=== PATIENT | male | born 1945 | race Caucasian/White ===

== ENCOUNTER 2021-06-18 10:02 | Day surgery (SDC) | payer MEDICARE, SELFPAY ==
--- NOTE | 2021-06-17 11:01 | HO.ANESPROP2 ---
Documented by User: Melissa Archibald NP 06/17/21 11:06 HPI - Anesthesia Eval Consult details Narrative: 76yo M for Upper Endoscopy and Colonoscopy 06/10/21 evaluation by vascular for increasing AAA. Cleared to undergo colonoscopy without concern for rupture O2 dependant for COPD (prn); ? prednisone daily 03/2021 Routine cardiology - stable for 6 mo f/u [facility] Past Medical History Medical History AAA (abdominal aortic aneurysm) BPH (benign prostatic hyperplasia) CAD (coronary artery disease) COPD (chronic obstructive pulmonary disease) GERD (gastroesophageal reflux disease) History of skin cancer HTN (hypertension) Myocardial infarction Surgical History Surgical History H/O colonoscopy History of esophagogastroduodenoscopy (EGD) Hx of angioplasty Hx of cholecystectomy Hx of heart artery stent Social History Social History Patient Tobacco Use Status: Former Tobacco user Quit Date: 2005 Tobacco use type: Cigarette Use of substances other than those prescribed or required for medical reasons: No Advance Directives: No Advance Directives Information Provided: Yes Recently lost weight without trying: No Nutrition Risks: No Nutritional Risk Meds Allergies Allergy/AdvReac Type Severity Reaction Status Date / Time adhesive tape Allergy Intermediate Rash Verified 06/04/21 15:41 [id number] Reductase Allergy Intermediate jittery Verified 06/04/21 15:41 Inhibitor tree nut Allergy Intermediate Itching Verified 06/04/21 15:41 Home Medications Medication Instructions Recorded Confirmed Last Taken Type albuterol sulfate 90 mcg/actuation 2 puff PO QID PRN 06/04/21 06/04/21 Unknown History aerosol inhaler amlodipine 2.5 mg tablet 1 tab PO DAILY 06/04/21 06/04/21 Unknown History finasteride 5 mg tablet 1 tab PO DAILY 06/04/21 06/04/21 Unknown History fluticasone 250 mcg-salmeterol 50 1 inh INHALATION BID 06/04/21 06/04/21 Unknown History mcg/dose blistr powdr for inhalation (Advair Diskus) furosemide 40 mg tablet 1 tab PO DAILY 06/04/21 06/04/21 Unknown History pantoprazole 40 mg tablet,delayed 1 tab PO DAILY 06/04/21 06/04/21 Unknown History release prednisone 10 mg tablet 1 tab PO DAILY 06/04/21 06/04/21 Unknown History tamsulosin 0.4 mg capsule (Flomax) 0.4 mg PO BEDTIME 06/04/21 06/04/21 Unknown History tiotropium bromide 18 mcg capsule 1 cap INHALATION DAILY 06/04/21 06/04/21 Unknown History with inhalation device (Spiriva with HandiHaler) Exam Exam Date and Time: June 17, 2021 1101 Narrative Narrative: EKG 03/2021 NSR ?LAE 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 Nml LV size and function with EF 60-65% Moderate MAC Mild mitral stenosis d/t MAC Nml RV size and function No significant change from 10/2018 Assessment and Plan Assessment Anesthesia Assessment: Chart Reviewed Documented by User: Dione Bocanegra MD 06/18/21 11:47 PMF Active Problems Active Problems: COPD - On home O2 @ 2L/min, increased as needed with exertion Carotid atherosclerosis. Patient not aware if stenosis, never mentioned Tremors felt while examining patient. ?Intention tremors. Patient admits to onset within the last 2-3months. Patient states was told 'not Parkinson's' AAA- increase in size from 2.9 to 4.4cm (fusiform AAA) over last 4-5 years. Repeat USS recommended in 6 months CHF. Occ SOB especially with exertion. On lasix ? 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 Just PVCs. Does not remember ever being on anticoagulants CAD with h/o AR. Denies recent chest pain Past Medical History Medical History AAA (abdominal aortic aneurysm) BPH (benign prostatic hyperplasia) CAD (coronary artery disease) COPD (chronic obstructive pulmonary disease) GERD (gastroesophageal reflux disease) History of skin cancer HTN (hypertension) Myocardial infarction Family History Family history of problems with anesthesia: No Surgical History Surgical History H/O colonoscopy History of esophagogastroduodenoscopy (EGD) Hx of angioplasty Hx of cholecystectomy Hx of heart artery stent History of Problems with Anesthesia: No Social History Social History Patient Tobacco Use Status: Former Tobacco user Quit Date: 2005 Tobacco use type: Cigarette Use of substances other than those prescribed or required for medical reasons: No Advance Directives: No Advance Directives Information Provided: Yes Recently lost weight without trying: No Nutrition Risks: No Nutritional Risk Meds Allergies Allergy/AdvReac Type Severity Reaction Status Date / Time adhesive tape Allergy Intermediate Rash Verified 06/04/21 15:41 [id number] Reductase Allergy Intermediate jittery Verified 06/04/21 15:41 Inhibitor tree nut Allergy Intermediate Itching Verified 06/04/21 15:41 Home Medications Medication Instructions Recorded Confirmed Last Taken Type albuterol sulfate 90 mcg/actuation 2 puff PO QID PRN 06/04/21 06/04/21 Unknown History aerosol inhaler amlodipine 2.5 mg tablet 1 tab PO DAILY 06/04/21 06/04/21 Unknown History finasteride 5 mg tablet 1 tab PO DAILY 06/04/21 06/04/21 Unknown History fluticasone 250 mcg-salmeterol 50 1 inh INHALATION BID 06/04/21 06/04/21 Unknown History mcg/dose blistr powdr for inhalation (Advair Diskus) furosemide 40 mg tablet 1 tab PO DAILY 06/04/21 06/04/21 Unknown History pantoprazole 40 mg tablet,delayed 1 tab PO DAILY 06/04/21 06/04/21 Unknown History release prednisone 10 mg tablet 1 tab PO DAILY 06/04/21 06/04/21 Unknown History tamsulosin 0.4 mg capsule (Flomax) 0.4 mg PO BEDTIME 06/04/21 06/04/21 Unknown History tiotropium bromide 18 mcg capsule 1 cap INHALATION DAILY 06/04/21 06/04/21 Unknown History with inhalation device (Spiriva with HandiHaler) Exam Height,Weight and Vital Signs: Height 5 ft 10 in Weight 92.986 kg Vital Signs Temp Pulse Resp BP Pulse Ox 06/18/21 11:20 98.1 F 85 17 151/81 H 95 Narrative Narrative: EKG 03/2021 NSR ?LAE 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 Nml LV size and function with EF 60-65% Moderate MAC Mild mitral stenosis d/t MAC Nml RV size and function No significant change from 10/2018 Echo 10/2018: EF 60%. Moderate pulmonary hypertension. Unable to obtain pulmonary artery pressures at recent echo. Airway Mallampati Class: III TM Dist: >3cm Neck ROM: Full Loose/Missing/Broken Teeth: No Heart: RRR Lungs: CTAB Assessment and Plan Assessment Anesthesia Assessment: Anesthesia Plan Discussed Final Anesthetic Review Family History of Problems with Anesthesia: No History of Problems with Anesthesia: No NPO: Yes ASA Class: III Final Preanesthetic Review: No Changes in Pt Med Stat, Meds/Allgs Chart Reviewed, Consent Obtained/Reviewed and Anes Risks/Benef Reviewed Patient Risk: Intermediate Procedure Risk: Low Assessment/Block/Sedation in SS: Assess/Block/Sedation-SS Anesthetic Plan Anesthetic Plan: MAC: Disposition: Standard PACU
[2021-06-18 11:09] VITALS: BMI 29.4
[2021-06-18 11:20] VITALS: BP 151/81; PULSE 85; RESP 17; TEMP 36.7; O2SAT 95; BMI 29.4
--- NOTE | 2021-06-18 11:36 | MHC.SHP ---
Pre-Procedural Eval Section A Date of Service: 06/18/21 Section B Chief Complaint: screening,barretts Details of Present Illness: see h and p no changes Relevant Family History (Specify if Yes): No Relevant Social History: None Present Medications: None Medical History: Significant History (see h and p) Allergies: Allergies Allergy/AdvReac Type Severity Reaction Status Date / Time adhesive tape Allergy Intermediate Rash Verified 06/04/21 15:41 Tpcwgih-[id number]-LaD Reductase Allergy Intermediate jittery Verified 06/04/21 15:41 Inhibitor tree nut Allergy Intermediate Itching Verified 06/04/21 15:41 Review of Systems Sugical H&P ROS: Negative: Constitution, Cardiovascular, Respiratory, Neurological, Psychiatric, Hem-Onc, Allergic/Immunologic, Gastrointestinal, Genitourinary, Musculoskeletal, Integumentary, Endocrine and Eyes/Ears/Nose/Throat Exam Surgical H&P Exam: Normal: HEENT, Normal: Heart, Normal: Lungs, Normal: Extremities, Normal: Abdomen, Normal: Skin and Normal: Neurological Plan Diagnosis/Plan: Unchanged I have reviewed the history and physical and performed a pertinent physical examination on my patient. No changes have occurred unless specified.
[2021-06-18] MEDS: Lactated Ringers 1,000 ML 50 ML IVCONT (11:39)
--- NOTE | 2021-06-18 12:21 | PM.OP ---
Brief Operative Note Date of Service: 06/18/21 Pre-op diagnosis: barretts, screening Post-op diagnosis: same Surgeon: Augusto Hwang Anesthesia: MAC Was an Stores Despatch Hand used for this Procedure?: No Estimated blood loss (mL): 5 Pathology: other (bxs esophagus, colon polyp) Condition: stable Disposition: PACU
[2021-06-18 12:24] VITALS: BP 100/65; PULSE 82; RESP 18; TEMP 36.6; O2SAT 98
[2021-06-18 12:40] VITALS: BP 111/72; PULSE 80; RESP 16; TEMP 36.6; O2SAT 96
--- NOTE | 2021-06-18 18:09 | OP_ITS ---
SURGEON: Augusto Hwang MD INDICATIONS: 1. Bolanos's esophagus. 2. Colon cancer screening. PREOPERATIVE DIAGNOSIS: POSTOPERATIVE DIAGNOSIS: PROCEDURE PERFORMED: ESTIMATED BLOOD LOSS: COMPLICATIONS: ANESTHESIA: ASSISTANTS: SPECIMENS: PROCEDURES PERFORMED: 1. Upper endoscopy with biopsy. 2. Colonoscopy to the cecum with biopsy. MEDICATIONS: Monitored anesthesia care. DESCRIPTION OF PROCEDURE: History and physical performed. The risks and benefits of the procedure were explained to the patient. Informed consent was obtained. The patient was placed in left lateral decubitus position. A digital rectal exam was performed and was found to be normal. The Olympus pediatric video colonoscope was introduced into the rectum and advanced to the cecum without difficulty. The cecum was identified by transillumination, palpation, and identification of ileocecal valve. Examination was performed and the scope was removed. He tolerated the procedure well and was taken to recovery area in stable condition. FINDINGS: UPPER ENDOSCOPY: Esophagus: The esophagus showed an approximately 2 cm patchy area of Bolanos's esophagus involving distal esophagus without any raised areas or ulceration. There was no esophagitis. Biopsies were obtained at the EG junction, 40 cm and 38 cm. Stomach: The stomach showed no evidence of masses, ulcers, or polyps. Duodenum: The bulb and second portion were normal. COLONOSCOPY: The terminal ileum was not examined. The visualized colonic mucosa was normal. There was some liquid stool coating the mucosa, limiting the sensitivity examination for detection of small polyps. This was washed and suctioned as best possible. In the cecum, was a less than 5 mm sessile polyp, which was removed with biopsy forceps. Retroflexed examination showed moderate-sized internal hemorrhoids. There was moderate sigmoid diverticulosis. No other polyps were identified. IMPRESSION: 1. Bolanos's esophagus. 2. Colon polyp. RECOMMENDATION: Follow up the biopsy results. MD DESTINEE Ann/CHRISTIANO / [id number] HA
== END 2021-06-18 12:05 | disposition home or self-care (01) ==
PROVIDERS: Visit Provider Internal Medicine Gastroenterology
PROC: (CPT 45380; principal; 2021-06-18 11:30)
DX: Z12.11 Encounter for screening for malignant neoplasm of colon (principal); D12.0 Benign neoplasm of cecum; K57.30 Diverticulosis of large intestine without perforation or abscess without bleeding; K64.8 Other hemorrhoids; K22.70 Barrett's esophagus without dysplasia; K21.9 Gastro-esophageal reflux disease without esophagitis; J44.9 Chronic obstructive pulmonary disease, unspecified; I11.0 Hypertensive heart disease with heart failure; I50.9 Heart failure, unspecified; I27.20 Pulmonary hypertension, unspecified; I25.10 Atherosclerotic heart disease of native coronary artery without angina pectoris; Z98.61 Coronary angioplasty status; Z85.828 Personal history of other malignant neoplasm of skin; Z99.81 Dependence on supplemental oxygen; Z79.51 Long term (current) use of inhaled steroids; Z79.899 Other long term (current) drug therapy; Z90.49 Acquired absence of other specified parts of digestive tract; Z88.1 Allergy status to other antibiotic agents; Z88.8 Allergy status to other drugs, medicaments and biological substances
CPT/HCPCS: 45380; 43239; 88305; J2370